=== PATIENT | female | born 1955 | race Caucasian/White ===

== ENCOUNTER 2020-09-19 04:43 | Emergency (ER) | payer MEDICAID ==
[~2020-09-19] VITALS: Ht 170.2 cm; Wt 75.0 kg
[2020-09-19] MEDS ORDERED: KETOROLAC 30 MG/1 ML IVPush ONE (05:30)
[2020-09-19] MEDS ORDERED: SODIUM CHLORIDE FLUSH 10ML SYR IVF ONE (05:30)
[2020-09-19] MEDS ORDERED: METHOCARBAMOL 750 MG TABLET PO ONE (05:30)
--- NOTE | 2020-09-19 05:32 | NUR ---
PT HERE FOR LOW BACK SINCE YESTERDAY. PT ALSO HAS HAD N/V AND DIZZINESS WELL. PIV PLACED. LABS DRAWN AND SENT. VSS. PT TO XRAY
[2020-09-19] MEDS ORDERED: METHOCARBAMOL 750 MG TABLET ONE (05:44)
[2020-09-19] MEDS ORDERED: KETOROLAC 30 MG/1 ML ONE (05:44)
[2020-09-19 05:51] LABS: BASOPHILS % (AUTO) 1 % (0-1); EOSINOPHILS % (AUTO) 1 % (1-7); LYMPHOCYTES % (AUTO) 9 % (22-44); MEAN CORPUSCULAR HGB CONC 32.2 g/dL (32.4-35.8); MEAN PLATELET VOLUME 7.6 fL (7.4-10.4); MONOCYTES % (AUTO) 7 % (2-9); NEUTROPHILS % (AUTO) 83 % (42-75); PLATELET COUNT 299 x10^3/uL (130-400); RED BLOOD COUNT 4.78 x10^6/uL (3.82-5.3)
[2020-09-19 05:54] LABS: ALBUMIN 3.5 g/dL (3.4-5.0); ANION GAP 7 mmol/L (5-15); CALCIUM 9.4 mg/dL (8.5-10.1); CHLORIDE 104 mmol/L (98-107); CREATININE 1.06 mg/dL (0.55-1.02)
--- NOTE | 2020-09-19 05:56 | NUR ---
PT MEDICATED FOR PAIN. VSS. CALL LIGHT IN REACH
[2020-09-19 05:58] LABS: TROPONIN I < 0.015 ng/mL (0.000-0.045)
[2020-09-19 06:01] LABS: MD NO
--- NOTE | 2020-09-19 06:23 | NUR ---
PT REMINDED THAT UA IS NEEDED. PT UNABLE TO VOID AT THIS TIME.
--- NOTE | 2020-09-19 06:49 | NUR ---
REPORT TO NATHALIA MANCERA.
--- NOTE | 2020-09-19 08:50 | NUR ---
[facility] ([facility]) [phone]
--- NOTE | 2020-09-19 09:01 | NUR ---
URINE SAMPLE COLLECTED AND SENT
[2020-09-19 09:13] LABS: MICROSCOPIC INDICATED
[2020-09-19] MEDS ORDERED: CEFTRIAXONE 1,000 MG in DEXTROSE 5% 50 ML IVPB ONE (09:30)
[2020-09-19 11:44] VITALS: BP 126/82
--- NOTE | 2020-09-19 11:47 | NUR ---
COMMUNITY NURSE: Patient/Caregiver given discharge instructions and they have confirmed that they understand the instructions. Patient ambulatory with steady gait.
== END 2020-09-19 11:48 | disposition home or self-care (01) ==
LOC: ED 07:49
DX: N30.00 Acute cystitis without hematuria (principal); G89.29 Other chronic pain; M54.5 Low back pain; R42 Dizziness and giddiness; R11.2 Nausea with vomiting, unspecified; R07.89 Other chest pain; R06.02 Shortness of breath; F17.210 Nicotine dependence, cigarettes, uncomplicated
CPT/HCPCS: 36415; 71045; 72110; 80048; 81001; 82040; 83880; 84484; 85025; 93005; 96365; 96375; 99285; J0696; J1885

== ENCOUNTER 2021-01-13 08:36 | Inpatient (IN) | payer MEDICAID ==
[~2021-01-13] VITALS: Ht 170.2 cm; Wt 81.3 kg
--- NOTE | 2021-01-13 09:14 | NUR ---
Pt walks with steady gait to bathroom to provide urine specimen. Pt denies n/v/d, no cp, no sob, no fever.
--- NOTE | 2021-01-13 09:30 | NUR ---
Pt unable to void, ambulated back to bed in NAD. Placed on cont pulse ox, call skinner in reach. AIDET provided.
[2021-01-13 09:56] LABS: BASOPHILS % (AUTO) 1 % (0-1); EOSINOPHILS % (AUTO) 1 % (1-7); LYMPHOCYTES % (AUTO) 14 % (22-44); MEAN CORPUSCULAR HEMOGLOBIN 26.2 pg (27.0-34.8); MEAN CORPUSCULAR HGB CONC 33.3 g/dL (32.4-35.8); MEAN PLATELET VOLUME 7.1 fL (7.4-10.4); MONOCYTES % (AUTO) 13 % (2-9); NEUTROPHILS % (AUTO) 71 % (42-75); PLATELET COUNT 294 x10^3/uL (130-400); RED BLOOD COUNT 4.73 x10^6/uL (3.82-5.3); RED CELL DISTRIBUTION WIDTH 14.9 % (9.6-15.2)
[2021-01-13 10:06] LABS: CALCIUM 9.1 mg/dL (8.5-10.1); CREATININE 1.11 mg/dL (0.55-1.02)
[2021-01-13 10:13] LABS: ANION GAP 6 mmol/L (5-15); CHLORIDE 103 mmol/L (98-107)
[2021-01-13] MEDS ORDERED: ONDANSETRON 2MG/ML, 2ML IVPush ONE (10:30)
[2021-01-13] MEDS ORDERED: SODIUM CHLORIDE 0.9% 1,000ML IVBOLUS ONE (10:30)
[2021-01-13] MEDS ORDERED: SODIUM CHLORIDE FLUSH 10ML SYR IVF ONE (10:30)
[2021-01-13] MEDS ORDERED: ONDANSETRON 2MG/ML, 2ML ONE (10:41)
[2021-01-13] MEDS ORDERED: MORPHINE SULFATE 4 MG/ML, 1ML ONE ×2 (10:41→15:21)
[2021-01-13] MEDS: MORPHINE SULFATE 4 MG/ML, 1ML IVPush PRN ×2 (10:55→15:25)
--- NOTE | 2021-01-13 10:59 | NUR ---
IV started, blood and x1 set bc drawn and sent to lab. IVF infusing, PCXR being done, EKG done, medicated per order ms and zofran. On cont pulse ox, will continue to monitor.
[2021-01-13 11:30] LABS: ANION GAP 5 mmol/L (5-15); CALCIUM 9.3 mg/dL (8.5-10.1); CHLORIDE 103 mmol/L (98-107)
--- NOTE | 2021-01-13 11:31 | NUR ---
Attempt to straight cath unsuccessful due to grapefruit size prolapsed uterus, will attempt again with 2nd assist.
[2021-01-13 11:34] LABS: ALANINE AMINOTRANSFERASE 28 U/L (12-78); ALKALINE PHOSPHATASE 87 U/L (45-117); BILIRUBIN,TOTAL 0.5 mg/dL (0.2-1.0); CREATININE 1.13 mg/dL (0.55-1.02); TOTAL PROTEIN 6.7 g/dL (6.4-8.2)
--- NOTE | 2021-01-13 11:52 | NUR ---
2nd attempt via sterile technique to straight cath, with retail assistant. Visualized urethral meatus however unable to pass/ met with resistence and pain.
--- NOTE | 2021-01-13 13:15 | NUR ---
task RN: assumed care of pt on behalf of primary RN for lunch break only. pt currently has a prolapsed uterus that has been in place for some time. Dr. David at bedside for uterine reduction. reduced uterus and this RN placed tracy using sterile technique per order. tolerated fair by pt
--- NOTE | 2021-01-13 13:25 | NUR ---
task RN: carmelo sample has been collected and sent. pt resting in position of comfort. dozing intermittently. lights dimmed and warm blankets given for comfort.
[2021-01-13 14:18] LABS: MICROSCOPIC INDICATED
--- NOTE | 2021-01-13 14:37 | NUR ---
I AM ASSUMING CARE OF THIS PT FROM YOGESH (FIORDALIZA) AT THIS TIME. SBAR WAS EXCHANGED AT THE BEDSIDE.
--- NOTE | 2021-01-13 15:29 | NUR ---
i spoke with daughter lorne via phone. plan of care discussed and admit room number shared ([id number]).
--- NOTE | 2021-01-13 15:37 | NUR ---
VERBAL SBAR EXCHANGED [facility] ON THE FLOOR FOR ADMISSION. WE WILL BEGIN TO PREPARE FOR TRANSPORT AT THIS TIME.
[2021-01-13] MEDS ORDERED: ONDANSETRON ODT 4 MG PO PRN (16:00)
[2021-01-13] MEDS ORDERED: OXYcodone IR 5MG TABLET PO PRN (16:00)
[2021-01-13] MEDS ORDERED: CEFTRIAXONE 1,000 MG in DEXTROSE 5% 50 ML IV SCH (16:00)
[2021-01-13] MEDS ORDERED: ONDANSETRON 2MG/ML, 2ML IVPush PRN (16:00)
[2021-01-13] MEDS: SODIUM CHLORIDE 0.9% 1,000 ML IV SCH (17:15)
[2021-01-13] MEDS: ENOXAPARIN 40 MG/0.4 ML SQ SCH (17:22)
[2021-01-13] MEDS: ACETAMINOPHEN 325 MG TABLET PO SCH ×2 (17:22→23:36)
[2021-01-13 17:55] VITALS: BP 125/69
[2021-01-13 19:15] VITALS: BP 128/68
[2021-01-13 19:18] VITALS: BP 125/69
[2021-01-13] MEDS ORDERED: SENNOSIDES 8.6 MG TABLET PO SCH (21:00)
[2021-01-14 00:22] VITALS: BP 101/66
[2021-01-14] MEDS: ACETAMINOPHEN 325 MG TABLET PO SCH ×2 (05:18→12:10)
[2021-01-14 06:23] VITALS: BP 110/65
[2021-01-14 06:24] LABS: BASOPHILS % (AUTO) 1 % (0-1); EOSINOPHILS % (AUTO) 1 % (1-7); LYMPHOCYTES % (AUTO) 17 % (22-44); MEAN CORPUSCULAR HEMOGLOBIN 25.5 pg (27.0-34.8); MEAN CORPUSCULAR HGB CONC 32.3 g/dL (32.4-35.8); MONOCYTES % (AUTO) 13 % (2-9); NEUTROPHILS % (AUTO) 68 % (42-75); PLATELET COUNT 282 x10^3/uL (130-400); RED BLOOD COUNT 4.41 x10^6/uL (3.82-5.3); RED CELL DISTRIBUTION WIDTH 14.8 % (9.6-15.2)
[2021-01-14 06:42] LABS: CALCIUM 8.8 mg/dL (8.5-10.1); CREATININE 0.91 mg/dL (0.55-1.02)
[2021-01-14 06:49] LABS: ANION GAP 5 mmol/L (5-15); CHLORIDE 104 mmol/L (98-107)
[2021-01-14] MEDS ORDERED: IBUPROFEN 200 MG TABLET PO PRN (07:45)
[2021-01-14] MEDS ORDERED: IBUPROFEN 200 MG TABLET ONE (07:56)
[2021-01-14] MEDS ORDERED: ACET325T26 PO (12:24)
[2021-01-14] MEDS ORDERED: SENN-99 PO (12:24)
[2021-01-14] MEDS ORDERED: CEFD300C37 PO (12:24)
[2021-01-14] MEDS ORDERED: IBUP-1902 PO (12:24)
[2021-01-14] MEDS: SODIUM CHLORIDE 0.9% 1,000 ML IV SCH (13:42)
[2021-01-14 14:19] VITALS: BP 104/71
[2021-01-14] MEDS: ENOXAPARIN 40 MG/0.4 ML SQ SCH (16:00)
== END 2021-01-14 18:12 | disposition home or self-care (01) | DRG 463 ==
LOC: ED 10:59 → 3N 15:02 → ED 15:37
PROVIDERS: ADMIT Internal Medicine; ATTEND Internal Medicine
PROC: 0T9B70Z Drainage of Bladder with Drainage Device, Via Natural or Artificial Opening (ICD-10-PCS; principal; 2021-01-13)
DX: N30.00 Acute cystitis without hematuria (principal); E86.0 Dehydration; N81.4 Uterovaginal prolapse, unspecified; M54.9 Dorsalgia, unspecified; F17.210 Nicotine dependence, cigarettes, uncomplicated; Z82.49 Family history of ischemic heart disease and other diseases of the circulatory system; Z85.820 Personal history of malignant melanoma of skin; Z86.006 Personal history of melanoma in-situ; Z71.6 Tobacco abuse counseling
CPT/HCPCS: 36415; 71045; 80048; 80053; 81001; 82040; 83605; 85025; 87040; 87077; 87086; 87147; 93005; 96361; 96374; 96375; 96376; G0378; J0696; J1650; J2405; J2270; J7030